=== PATIENT | male | born 1970 | race Caucasian/White ===

== ENCOUNTER 2023-10-17 12:23 | Outpatient (OUT) | payer BC, SELFPAY ==
--- NOTE | 2023-10-17 | VEIN_ITS ---
Patient Name: THIAGO JENKINS MR#: [id number] : 1970 Exam Date: 10/17/2023 Ordering Doctor: DR THIAGO PERAZA M.D. RADIOLOGY REPORT PROCEDURE: [facility] - OFFICE VISIT INITIAL COMPARISON: None. PROGRESS NOTES: [age] year old male who presents with a 1.5 year history of dilated bulging veins, discolored veins, leg pain, muscle cramping. The patient's right leg symptoms are worse than the left. There has been a progression of symptoms over time. This increases with prolonged standing. The patient describes an improvement with rest, elevation, and support stockings. The patient denies any signs and symptoms to suggest arterial ischemia. The patient describes a family history varicose veins on maternal side. The patient has drinking and smoking history of occasional alcohol consumption and former smoker. Patient has a past medical history significant for hypothyroidism, hypertension, superficial thrombophlebitis. The patient denies a history of deep venous thrombus or pulmonary embolus. See separate history and physical for medication list. No prior treatment for varicose or spider veins. Current use of compression stockings. After review of nurse notes, history and physical exam I discussed at length the pathophysiology of venous hypertension and possible treatments, therapies and strategies available. We discussed at length the importance of elevating the lower extremities above the level of the heart, increased physical activity and compression stocking use. Ultrasound venous reflux study performed today was discussed at length with the patient. The report demonstrates markedly dilated and incompetent bilateral great saphenous veins, small saphenous veins, and anterior accessory saphenous veins. Numerous markedly dilated incompetent branch saphenous varicosities bilaterally. 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 PHYSICAL EXAM: The right leg demonstrates numerous large varicosities, scattered spider veins, no ulceration, mild-moderate edema, no skin discoloration. The left leg demonstrates numerous large varicosities, scattered spider veins, no ulceration, mild-moderate edema, no skin discoloration. Both thighs, legs and feet were symmetrically warm to the touch. Good posterior tibial and dorsalis pedis pulses were present bilaterally. VEIN/[facility] EST Comprehensive IMPRESSION: 1. Marked bilateral lower extremity venous insufficiency 2. Marked bilateral lower extremity varicose veins 3. Mild-moderate bilateral lower extremity subcutaneous edema 4. No flow significant arterial disease 5. CEAP: C3, EC, AP, AR PLAN: 1. Continued use of compression stockings 2. Elevated legs and increased physical activity symptomatic relief 3. Endovenous laser ablation of left great saphenous vein, the right great saphenous vein, left anterior accessory saphenous vein, right anterior accessory saphenous vein, left small saphenous vein, right small saphenous vein. 4. Microfoam chemical ablation of numerous large incompetent branch saphenous varicosities bilaterally. Nurse notes, history and physical were reviewed and confirmed, see attached forms. The nurse was present throughout the physical exam and consultation Dictated by: Wicho Castillo M.D. on 10/17/2023 at 14:15 Approved by: Wicho Castillo M.D. on 10/17/2023 at 14:21
--- NOTE | 2023-10-17 | VEIN_ITS ---
Patient Name: THIAGO JENKINS MR#: [id number] : 1970 Exam Date: 10/17/2023 Ordering Doctor: DR THIAGO PERAZA M.D. RADIOLOGY REPORT PROCEDURE: [facility] EXT VENOUS REFLUX PINKY LMTD COMPARISON: None. INDICATIONS: Pain due to varicose veins of bilateral legs I83.813 TECHNIQUE: Duplex imaging of the lower extremity to assess the deep and superficial venous system for the presence of deep or superficial venous incompetence and to document the location and severity of disease. The study includes evaluation of the great saphenous vein (GSV), anterior accessory saphenous vein (AASV) and small saphenous vein (SSV). Patient scanned in reverse Trendelenburg and standing. FINDINGS: RIGHT LOWER EXTREMITY: Saphenofemoral Junction Reflux: Yes 10.4mm 1.4 sec GSV: Diam (mm) Reflux/ Time (sec) Proximal Thigh 9.4 Yes 1.2 Mid Thigh 6.9 Yes 1.6 Distal Thigh 4.5 Yes 2.6 Prox Calf 4.8 Yes 0.4 Mid Calf 4.1 Yes 0.5 Saphenopopliteal Junction Reflux: 5.5mm Yes 0.6 SSV: Proximal Calf 5.6 Yes 3.3 Mid Calf 4.6 Yes 0.3 AASV: Proximal Thigh 7.3 Yes 1.0 Mid Thigh 5.8 Yes 1.0 Distal Thigh 5.1 Yes 0.4 Thrombi: Acute thrombus in GSV approximately 9.4 cm from SFJ and extends to distal thigh. Acute thrombus in multiple varicose veins medial right leg. Compressibility: Non-compressible and partially compressible areas associated with thrombus. Flow: Mild deep venous reflux. Preforator: Thrombosed perf dist/med lower leg measures 8.4mm with 1.6s reflux. Mid/med lower leg 3.8 mm, 3.8s reflux. Prox/med lower leg 5.3 mm, 3.0s reflux. Tech Note: Enlarged lymph node in right groin 3.8 x 2.5 x 1.5 cm. Mid medial thigh cook enchilada associated with AASV measures 5.4 mm with 0.8s reflux. Incompetent varicose vein distal anterior lower leg 4.2 mm with 2.9s reflux. Prox posterior calf varicose vein 5.5 mm with 4.6s reflux. Varicose vein proximal medial lower leg measures 4.2 mm with 1.4s reflux. Varicose vein mid lateral thigh measures 5.8 mm with 1.0s reflux. LEFT LOWER EXTREMITY: Saphenofemoral Junction Reflux: Yes 11.8 mm 0.7 sec GSV: Diam (mm) Reflux/Time (sec) Proximal Thigh 9.3 Yes 0.5 Mid Thigh 6.5 Yes 0.9 Distal Thigh 4.8 Yes 0.2 Prox Calf 6.6 Yes 1.9 Mid Calf 4.7 Yes 0.4 Saphenopopliteal Junction Relux: 6.0 mm Yes 1.5 SSV: Proximal Calf 6.4 Yes 0.7 Mid Calf 6.2 Yes 1.4 AASV: Proximal Thigh 12.4 Yes 3.9 Mid Thigh 10.8 Yes 1.5 Distal Thigh Thrombi: No acute or chronic thrombus. Compressibility: Normal. Flow: Mild deep venous reflux. Cotton Ball Bagger: Dist/medial lower leg 4.5 mm with 3.7s reflux. Dist/medial lower leg measures 5.0 mm with 2.5s reflux. Mid posterior calf 4.7mm, 3.9s reflux. Tech Note: Incompetent varicose vein distal medial lower leg measures 6.6 mm with 0.7s reflux. Proximal medial lower leg varicose vein measures 6.1 mm with 1.4s reflux. Varicose vein prox posterior calf measures 5.3 mm with 2.0s reflux. Prox lateral lower leg varicose vein measures 11.0 mm with 4.9s reflux. Distal lateral thigh varicose vein measures 13.8 mm with 5.0s reflux. CONCLUSION: 1. Markedly dilated and incompetent bilateral great saphenous veins, bilateral small saphenous veins, bilateral anterior accessory saphenous veins. 2. Numerous markedly dilated incompetent branch saphenous varicosities bilaterally. 3. Multiple dilated and incompetent cook enchilada veins bilaterally. Dictated by: Wicho Castillo M.D. on 10/17/2023 at 14:00 Approved by: Wicho Castillo M.D. on 10/17/2023 at 14:15
== END 2023-10-17 12:24 | disposition home or self-care (01) ==
LOC: VC 12:23
PROVIDERS: Visit Provider Radiology Diagnostic Radiology
DX: I83.813 Varicose veins of bilateral lower extremities with pain (principal)
CPT/HCPCS: 93970; G0463